=== PATIENT | female | born 1990 ===

== ENCOUNTER 2017-10-12 16:21 | Emergency (ER) | payer OTHER ==
[2017-10-12 16:23] VITALS: BMI 25.7
--- NOTE | 2017-10-12 18:04 | C.PDOC ---
History Of Present Illness <Leonarda Orozco - Last Filed: 10/12/17 18:52> <Candelario Seo - Last Filed: 10/12/17 19:14> 27 y/o female presents to ED with for evaluation vaginal bleeding since earlier today. Pt notes she was having pelvic cramping and then had vaginal bleeding. One pad today. (+) urinary frequency and dysuria. Patient denies fever , n/v, back pain or any other complaints at this time. (Leonarda Orozco) History Per: Patient History/Exam Limitations: no limitations Onset/Duration Of Symptoms: Hrs Current Symptoms Are (Timing): Still Present Quality Of Discomfort: "Pain" <Leonarda Orozco - Last Filed: 10/12/17 18:52> <Candelario Seo - Last Filed: 10/12/17 19:14> Time Seen by Provider: 10/12/17 17:29 Chief Complaint (Nursing): Female Genitourinary Past Medical History Reviewed: Historical Data, Nursing Documentation, Vital Signs - Medical History PMH: No Chronic Diseases Surgical History: No Surg Hx Family History: States: No Known Family Hx - Social History Hx Tobacco Use: No Hx Alcohol Use: No Hx Substance Use: No - Immunization History Hx Tetanus Toxoid Vaccination: No Hx Influenza Vaccination: No Hx Pneumococcal Vaccination: No <Leonarda Orozco - Last Filed: 10/12/17 18:52> Vital Signs: Last Vital Signs Temp 98.6 F 10/12/17 16:44 Pulse 84 10/12/17 16:44 Resp 16 10/12/17 16:44 BP 129/89 10/12/17 16:44 Pulse Ox 96 10/12/17 18:54 Review Of Systems Constitutional: Negative for: Fever, Chills Gastrointestinal: Positive for: Abdominal Pain. Negative for: Nausea, Vomiting Genitourinary: Positive for: Dysuria, Frequency, Vaginal Bleeding. Negative for : Vaginal Discharge Musculoskeletal: Negative for: Back Pain Skin: Negative for: Rash <Leonarda Orozco - Last Filed: 10/12/17 18:52> Physical Exam - Physical Exam Appears: Non-toxic, No Acute Distress Skin: Warm, Dry, No Rash Head: Atraumatic, Normacephalic Eye(s): bilateral: Normal Inspection, EOMI Oral Mucosa: Moist Neck: Normal ROM, Supple Cardiovascular: Rhythm Regular Respiratory: Normal Breath Sounds, No Rales, No Rhonchi, No Wheezing Gastrointestinal/Abdominal: Soft, No Tenderness, No Guarding, No Rebound Back: No CVA Tenderness, No Paraspinal Tenderness Neurological/Psych: Oriented x3, Normal Speech <Leonarda Orozco - Last Filed: 10/12/17 18:52> ED Course And Treatment - Laboratory Results Result Diagrams: 10/12/17 18:04 10/12/17 18:04 O2 Sat by Pulse Oximetry: 96 (RA) Pulse Ox Interpretation: Normal Progress Note: Blood work, Beta HCG, UA, ordered. Tylenol administered. Case endorsed to Dr Seo pending US results. <Leonarda Orozco - Last Filed: 10/12/17 18:52> - Laboratory Results Result Diagrams: 10/12/17 18:04 10/12/17 18:04 <Candelario Seo - Last Filed: 10/12/17 19:14> Disposition - Disposition Disposition Time: 18:44 <Leonarda Orozco - Last Filed: 10/12/17 18:52> <Candelario Seo - Last Filed: 10/12/17 19:14> - Disposition Disposition: HOME/ ROUTINE Condition: STABLE Additional Instructions: Follow up with PMD in 1-2 days. Return to ER If symptoms persist or worsen . Prescriptions: Naproxen [Naprosyn] 1 tab PO BID PRN #20 tab PRN Reason: Pain Nitrofurantoin Macrocrystals [Macrobid] 1 cap PO BID #14 cap Instructions: Menstruation, Ovarian Cyst (DC) Forms: [employer] (Urdu) Print Language: PASHTO - Clinical Impression Clinical Impression: Dysmenorrhea, UTI (urinary tract infection) - PA / UROLOGIST / Resident Statement MD/DO has reviewed & agrees with the documentation as recorded. - Scribe Statement The provider has reviewed the documentation as recorded by the Scribe <Leonarda Orozco - Last Filed: 10/12/17 18:52> <Candelario Seo - Last Filed: 10/12/17 19:14> - Scribe Statement Jenny Abreu All medical record entries made by the Scribe were at my direction and personally dictated by me. I have reviewed the chart and agree that the record accurately reflects my personal performance of the history, physical exam, medical decision making, and the department course for this patient. I have also personally directed, reviewed, and agree with the discharge instructions and disposition. (Leonarda Orozco)
[2017-10-12 18:08] LABS: BASO # 0.1 K/uL (0.0-0.2); BASO % 0.9 % (0.0-2.0); EOS # 0.2 K/uL (0.0-0.7); EOS % 2.6 % (0.0-4.0); HEMOGLOBIN 12.9 g/dL (11.0-16.0); LYMPH # 2.8 K/uL (1.0-4.3); MEAN CELL VOLUME 84.4 fL (81.0-99.0); MEAN CORPUSCULAR HEMOGLOBIN 28.8 pg (27.0-31.0); MEAN CORPUSCULAR HGB CONC 34.1 g/dL (33.0-37.0); MEAN PLATELET VOLUME 8.4 fL (7.2-11.7); MONO # 0.7 K/uL (0.0-0.8); MONO % 7.4 % (0.0-10.0); NEUT # 5.7 K/uL (1.8-7.0); NEUT % 60.1 % (50.0-75.0); NRBC % 0.1 % (0.0-2.0); RBC 4.47 Mil/uL (3.80-5.20); RED CELL DISTRIBUTION WIDTH 12.6 % (11.5-14.5); WHITE BLOOD COUNT 9.6 K/uL (4.8-10.8)
[2017-10-12 18:19] LABS: HCG,QUALITATIVE URINE NEGATIVE (NEGATIVE)
[2017-10-12 18:21] LABS: SQUAMOUS EPITHIAL 55 /hpf (0-5); URINE BACTERIA RARE (<OCC); URINE BILIRUBIN NEGATIVE (NEGATIVE); URINE BLOOD 3+ (NEGATIVE); URINE CLARITY Hazy (Clear); URINE COLOR Yellow (YELLOW); URINE GLUCOSE (UA) NORMAL (Normal); URINE LEUKOCYTE ESTERASE 2+ Leu/uL (Negative); URINE PROTEIN NEGATIVE (NEGATIVE); URINE UROBILINOGEN NORMAL mg/dL (0.2-1.0)
[2017-10-12 18:22] LABS: ALB/GLOB RATIO 1.3 (1.0-2.1); ALBUMIN 4.8 g/dL (3.5-5.0); ALT/SGPT 21 U/L (9-52); AST/SGOT 26 U/L (14-36); BLOOD UREA NITROGEN 11 mg/dL (7-17); CALCIUM 9.5 mg/dl (8.6-10.4); GFR AFRICAN-AMERICAN > 60; GFR NON-AFRICAN AMERICAN > 60
--- NOTE | 2017-10-12 18:50 | US ---
HISTORY: Bleeding. COMPARISON: No prior non of ultrasounds available comparison. TECHNIQUE: Transabdominal/transvaginal sonographic evaluation of the pelvis performed. FINDINGS: UTERUS: Uterus measures approximate 6.4 x 3.5 x 4.4 cm. Retroverted. Normal in size and appearance. No fibroid or other mass lesion seen. ENDOMETRIUM: Measures 3.7 mm in diameter. Unremarkable. CERVIX: No cervical abnormality identified. RIGHT OVARY: Measures approximately 3.0 x 1.9 x 3.2 cm. No solid mass. Normal flow. Prominent right ovarian follicle or cyst measuring 1.25 x 0.9 x 1.1 cm LEFT OVARY: Measures approximate 2.3 x1 0.9 x 2.0 cm. No solid mass. Normal flow. FREE FLUID: No significant free fluid noted. OTHER FINDINGS: None. IMPRESSION: Prominent right ovarian follicle or small cyst
[2017-10-12 19:20] VITALS: BP 126/73; PULSE 78; RESP 18; TEMP 98; O2SAT 98
== END 2017-10-12 19:20 | disposition home or self-care (01) ==
LOC: C.ER 16:21
DX: N94.6 Dysmenorrhea, unspecified (principal); N39.0 Urinary tract infection, site not specified